=== PATIENT | male | born 1960 ===

== ENCOUNTER 2024-10-14 10:42 | Outpatient (CLI) | payer BC, SELFPAY ==
[2024-10-14 10:37] LABS: ALT 122 U/L (16-63); AST 44 U/L (15-37); Albumin 2.5 g/dL (3.4-5.0); Alkaline Phosphatase 291 U/L (46-116); Anion Gap 9.1 mmol/L (3-11); BUN 15 mg/dL (7-18); Bilirubin, Total 0.39 mg/dL (0.2-1.0); CO2 26.9 mmol/L (21.0-32.0); CREATININE 0.9 mg/dL (0.70-1.30); Calcium 8.7 mg/dL (8.5-10.1); Chloride 107 mmol/L (98-107); Estimated GFR 95.97 (mL/min/1.73m2); Glucose 109 mg/dL (74-106); Potassium 4.4 mmol/L (3.5-5.1); Sodium 143 mmol/L (136-145); Total Protein 6.6 g/dL (6.4-8.2); Troponin I 6 ng/L (<or=76)
== END 2024-10-14 10:43 | disposition home or self-care (01) ==
LOC: LBO 10:42
PROVIDERS: PCP Internal Medicine Hospice and Palliative Medicine; Visit Provider Internal Medicine Hospice and Palliative Medicine
DX: C43.9 Malignant melanoma of skin, unspecified (principal); Z79.899 Other long term (current) drug therapy
CPT/HCPCS: 36415; 80053; 84484

== ENCOUNTER 2024-10-17 03:25 | Outpatient (CLI) | payer BC, SELFPAY ==
[2024-10-17 12:42] LABS: ALT 110 U/L (16-63); AST 40 U/L (15-37); Albumin 2.7 g/dL (3.4-5.0); Alkaline Phosphatase 271 U/L (46-116); Anion Gap 6.2 mmol/L (3-11); BUN 17 mg/dL (7-18); Bilirubin, Total 0.47 mg/dL (0.2-1.0); CO2 30.8 mmol/L (21.0-32.0); CREATININE 0.9 mg/dL (0.70-1.30); Calcium 9.1 mg/dL (8.5-10.1); Chloride 104 mmol/L (98-107); Estimated GFR 95.97 (mL/min/1.73m2); Glucose 114 mg/dL (74-106); LDH 370 U/L (85-227); Potassium 4.4 mmol/L (3.5-5.1); Sodium 141 mmol/L (136-145); Total Protein 7.3 g/dL (6.4-8.2)
== END 2024-10-17 03:26 | disposition home or self-care (01) ==
LOC: LBO 03:25
PROVIDERS: PCP Internal Medicine Hospice and Palliative Medicine; Visit Provider Internal Medicine Hospice and Palliative Medicine
DX: Z79.899 Other long term (current) drug therapy (principal); C43.9 Malignant melanoma of skin, unspecified
CPT/HCPCS: 36415; 80053; 83615; 84484